=== PATIENT | female | born 1990 ===

== ENCOUNTER 2020-02-12 17:22 | Emergency (ER) | payer SELFPAY ==
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
== END 2020-02-12 18:45 | disposition left against medical advice (07) ==
LOC: ED 18:30
DX: S40.021A Contusion of right upper arm, initial encounter (principal); Y04.8XXA Assault by other bodily force, initial encounter; Y93.89 Activity, other specified; Y92.89 Other specified places as the place of occurrence of the external cause; Y99.8 Other external cause status
CPT/HCPCS: 99281